=== PATIENT | female | born 2000 | race Caucasian/White ===

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

== ENCOUNTER → 2019-05-22 | Outpatient (CLI) | payer BC ==
[2019-05-22 21:01] LABS: Codfish IgE <0.10 kU/L; Egg White IgE 0.18 kU/L
[2019-05-22 21:02] LABS: Peanut IgE <0.10 kU/L; Soybean IgE <0.10 kU/L
[2019-05-22 21:03] LABS: Clam IgE <0.10 kU/L; Shrimp IgE <0.10 kU/L; Walnut IgE (Food) <0.10 kU/L
[2019-05-22 21:04] LABS: Scallop IgE <0.10 kU/L
[2019-05-22 21:13] LABS: Dermato. farinae IgE <0.10 kU/L
[2019-05-22 21:14] LABS: Aspergillus fumagatus IgE <0.10 kU/L; Cat Epith & Dander IgE 0.19 kU/L; Cockroach IgE <0.10 kU/L; Dog Dander IgE <0.10 kU/L
[2019-05-22 21:15] LABS: Birch IgE <0.10 kU/L; Elm IgE <0.10 kU/L; Maple (Box Elder) IgE <0.10 kU/L; Oak IgE <0.10 kU/L; Ragweed,Common IgE <0.10 kU/L
[2019-05-22 21:16] LABS: Red Top (Bentgrass) IgE 9.93 kU/L
== END | disposition home or self-care (01) ==
LOC: LABWHC1 12:58
PROVIDERS: ATTEND Family Medicine
DX: L50.0 Allergic urticaria (principal)
CPT/HCPCS: 36415; 82785; 86003

== ENCOUNTER → 2019-10-23 | Outpatient (CLI) | payer BC ==
[2019-10-23 23:12] LABS: T4, Free (Free Thyroxine) 1.1 ng/dL (0.83-1.43)
== END | disposition home or self-care (01) ==
LOC: LABWHC1 16:18
PROVIDERS: ATTEND Obstetrics & Gynecology
DX: N93.8 Other specified abnormal uterine and vaginal bleeding (principal)
CPT/HCPCS: 36415; 84439; 84443; 84479

== ENCOUNTER → 2019-12-17 | Outpatient (CLI) | payer BC ==
--- NOTE | 2019-12-17 10:54 | MR ---
EXAMINATION TYPE: MR brain wo/w con DATE OF EXAM: 12/17/2019 COMPARISON: None HISTORY: migraine TECHNIQUE: Multiplanar, multisequence images of the brain and brainstem is performed without and with IV contras t, utilizing 6 mL intravenous Gadavist . FINDINGS: Diffusion weighted images demonstrate no evidence of a recent infarct or other diffusion ab normality. There is no extra-axial fluid collection or significant white matter signal abnormality. The ventricular system and cisternal spaces are normal in size and appearance. The brain volume is age appropriate. Midline structures demonstrate normal morphology. Cerebellar tonsils low-lying in position at the lev el the foramen magnum or 1 mm below. Post contrast images demonstrate no abnormal enhancement. The d ural venous sinuses appear patent. Mild changes of chronic sinusitis and the globes are intact. There is a focal area of reduced enhancement involving the anterior margin the pituitary gland on sagittal image 83 and axial image 11. IMPRESSION: 1. Low-lying cerebellar tonsils. No tonsillar beaking. 2. 2 mm area of reduced enhancement involving the pituitary gland can sometimes be associated with a pituitary microadenoma. Correlate with serum studies and if clinically warranted MRI pituitary. 3. Mild chronic sinusitis.
== END | disposition home or self-care (01) ==
LOC: RADMRIMAIN 09:47
PROVIDERS: ATTEND Family Medicine
DX: G43.909 Migraine, unspecified, not intractable, without status migrainosus (principal)
CPT/HCPCS: 70553; A9585